=== PATIENT | female | born 1970 | race Two or more races ===

== ENCOUNTER 2025-01-29 23:45 | Emergency (ER) | payer MEDICAID, SELFPAY ==
[2025-01-29 23:56] VITALS: BP 114/66; PULSE 86; RESP 18; TEMP 36.4; O2SAT 98
--- NOTE | 2025-01-29 23:59 | EDNOTE_ITS ---
ED Abdominal Pain RME/HPI General Chief Complaint: Abdominal Pain Stated complaint: LOWER ABDOMINAL PAIN Time seen by provider: 01/30/25 00:09 Arrival date/time: 01/29/25 23:45 RME / HPI RME / HPI narrative: See [facility] for Dr. To's HPI Documentation. Related Data Previous Rx's ?Medication ?Instructions ?Recorded acetaminophen 300 mg-codeine 30 mg 2 tab PO Q8H PRN pa in #20 tabs 01/30/25 tablet cefdinir 300 mg capsule 300 mg PO BID 5 days #10 cap s 01/30/25 ketorolac 10 mg tablet 10 mg PO Q8H PRN pain 5 days #10 01/30/25 tabs ondansetron 4 mg disintegrating 4 mg PO TID PRN nausea and 01/30/25 tablet vomiting 30 days #10 tabs tamsulosin 0.4 mg capsule 0.4 mg PO QDAY #7 caps 01/30 Allergies Allergy/AdvReac Type Severity Reaction Status Date / Time No Known Allergies Allergy Verified 03/12/23 13:32 Review of Systems Review of Systems Systems Reviewed: All systems reviewed, normal except as documented Past Medical History Surgical History SURGICAL: Positive Section ED Exam Narrative Physical exam: See [facility] for Dr. To's Physical Exam Documentation. Course Quality Measures none Orders Category Date Time Status Miscellaneous Nursing Order NOW Care 01/30/25 04:21 Completed Saline [Insert IV] NOW Care 01/29/25 23:59 Completed Straight [In and Out Catheter] X1 Care 01/29/25 23:[address] abdomen pelvis wo con Stat Exams 01/30/25 00:00 Completed Bilirubin,Direct Stat Lab 01/30/25 00:10 Completed CBC Stat Lab 01/30/25 00:10 Completed CMP [Comprehensive Metabolic Panel] Stat Lab 01/30/25 00:10 Completed HCG,Qualitative Serum Stat Lab 01/30/25 00:10 Completed Magnesium Stat Lab 01/30/25 00:10 Completed UA, C/S IF [Urinalysis, C/S if Indicated] Stat Lab 01/30/25 00:09 Completed Urine Culture Stat Lab 01/30/25 00:09 Received Ketorolac Inj [Toradol Inj] Med 01/29/25 23:59 Discontinued 18 mg IVP X1 ONE Morphine* Inj Med 01/29/25 23:59 Discontinued 2 mg IV X1 ONE Ondansetron Inj [Zofran Inj] Med 01/29/25 23:59 Discontinued 4 mg IVP X1 ONE Sodium Chloride 0.9% 1000 ml [Ns] 1,000 ml Med 01/29/25 23:59 Discontinued IV 999 mls/hr Tamsulosin HCl [Flomax] Med 01/30/25 04:20 Discontinued 0.4 mg PO X1 ONE cefTRIAXone/D5w 1gm IV premix [Rocephin/D5w 1gm IV Med 01/30/25 01:11 Discontinued premix] 1 gm in 50 ml IV X1 Vital Signs Vital signs: Vital Signs Temperature 97.6 F 01/29/25 23:56 Pulse Rate 86 01/29/25 23:56 Respiratory Rate 18 01/29/25 23:56 Blood Pressure 114/66 01/29/25 23:56 Pulse Oximetry (%) 98 01/29/25 23:56 Oxygen Delivery Method Room Air 01/29/25 23:56 Abdominal Pain MDM MDM Narrative MDM Narrative:: This section includes all my notes and documentations, including HPI, PE, and ED course. Issa To MD HPI: 54 y/o female presents with right flank pain radiating down to the right groin x 2 days. No other complaints. ROS: All negative except as documented in HPI. Physical Exam: General: Alert and oriented. In severe pain. Eyes: Conjunctivae and lids clear. ENT: No nasal congestion. Neck: Supple. Heart: RRR. Lungs: No respiratory distress. Good air movement. No rhonchi, wheezing, rales. Abdomen: Soft and nontender. Normal bowel sounds. No distension. No rebound or guarding. Back: No CVA tenderness. Skin: Warm and dry. Neuro: Alert and oriented X 3. I reviewed all diagnostic test results: My review of the Abdomen/Pelvis CT report is: 6 mm obstructing calculus in the right ureterovesical junction causing moderate right hydroureteronephrosis. Blood tests unremarkable. UA showed negative nitrite, positive leukocyte esterase, 24 RBC, 17 WBC, 4 squamous epithelial cells, and no bacteria. At this point, diagnoses include: Right Kidney Stone Possible UTI Treatment here included: IVF Toradol 18 mg IV Morphine 2 mg IV Zofran 4 mg IV Rocephin 1 G IV Flomax 0.4 mg PO Urine strainer dispensed. She felt much better. Recommended a trial of outpatient treatment. Based on my best medical judgment, made decision no further evaluation or treatment indicated at this time. Patient understands and agrees to the discharge instructions customized and printed, see below. Discharge Instructions from Dr. To: --Your symptoms are due to a 6 mm right kidney stone.? It is outside the kid jerome.? It is trying to pass into your bladder.? --Increase oral fluid to flush your kidneys.? Maintain clear urine. if it's dark or yellow then increase oral fluid.? If you don't do this, you won't pass it.? --Take Flomax to help decrease spasms to increase the chance of passing it.? --Take Zofran as needed for nausea or vomiting. --Take Ketorolac/Toradol for pain control.? And Tylenol with Codeine.? If you are in severe pain, you won't pass it.?? --Strain your urine so you can catch the stone when you pass it.? --See a private doctor on 06/10/2024 for recheck. Take the stone with you for analysis because certain stones can be prevented.? If you didn't pass it, ask for referral to see urologist.? Who will take the stone out for you. --Seek immediate medical care with fever over 100.4, persistent vomiting despite Zofran, intolerable pain, or with any concerns.?? Issa To MD Patient data External records reviewed:: [facility] previous records (Reviewed prior ED records from 03/12/23. Patient was seen for Arm pain, left. ) Clinical information provided by:: patient Social determinants that could affect healthcare access:: none Patient has the following chronic illnesses:: None reported How is presenting disease/condition affected by chronic disease/condition?: no chronic disease Evaluation data The following diagnostics were reviewed and interpreted by me:: lab results and radiology exam(s) Lab and/or radiology exams considered but not ordered:: None Interpretation Summary: I reviewed all diagnostic test results: My review of the Abdomen/Pelvis CT report is: 6 mm obstructing calculus in the right ureterovesical junction causing moderate right hydroureteronephrosis. Blood tests unremarkable. UA showed negative nitrite, positive leukocyte esterase, 24 RBC, 17 WBC, 4 squamous epithelial cells, and no bacteria. Medications / Prescriptions Medications or Prescriptions considered but not ordered:: None Medication administrations:: Medication Administration History Discontinued Medications Sodium Chloride (Ns) 1,000 mls @ 999 mls/hr IV .Q1H1M ONE Stop: 01/30/25 00:59 Last Infusion: 01/30/25 01:40 Dose: Infused Documented By: Admin: 01/30/25 00:34 Dose: 999 mls/hr Documented By: EE Ceftriaxone Sodium/Dextrose (Rocephin/D5w 1gm Iv Premix) 1 gm in 50 mls @ 100 mls/hr IV X1 ONE Stop: 01/30/25 01:40 Last Infusion: 01/30/25 04:28 Dose: Infused Documented By: Admin: 01/30/25 01:40 Dose: 100 mls/hr Documented By: ADAM Ketorolac Tromethamine (Ketorolac Inj 30 Mg/Ml Vial) 18 mg IVP X1 ONE Stop: 01/30/25 00:00 Last Admin: 01/30/25 00:35 Dose: 18 mg Documented By: EE Morphine Sulfate (Morphine Sulf Inj 4 Mg/Ml Vial) 2 mg IV X1 ONE Stop: 01/30/25 00:00 Last Admin: 01/30/25 00:35 Dose: 2 mg Documented By: EE Ondansetron HCl (Ondansetron Inj 2 Mg/Ml Inj 2 Ml) 4 mg IVP X1 ONE; Protocol Stop: 01/30/25 00:00 Last Admin: 01/30/25 00:35 Dose: 4 mg Documented By: ADAM Tamsulosin HCl (Tamsulosin Hcl 0.4 Mg Capsule) 0.4 mg PO X1 ONE Stop: 01/30/25 04:21 Last Admin: 01/30/25 04:38 Dose: 0.4 mg Documented By: ADAM Treatment here included: IVF Toradol 18 mg IV Morphine 2 mg IV Zofran 4 mg IV Rocephin 1 G IV Flomax 0.4 mg PO Urine strainer dispensed. Consultations Consultation(s) initiated? (list below): No Diagnosis Differential diagnosis abdominal pain: acute appendicitis, calculus of kidney, constipation, diverticulitis, endometriosis, gastroenteritis, pancreatitis, small bowel obstruction (Inguinal hernia) and other Most likely diagnosis given after review of the tests above:: Right Kidney Stone Possible UTI Admission Indicated Admission indicated?: not indicated Explain why admission is indicated or not indicated:: With significant improvement and no condition needing emergent intervention, there was no indication for admission. Admission Request Was there a request for admission?: No Disposition Plan Disposition Plan: Discharge Discharge Attestation Discharge Attestation: The patient and all family members were given an opportunity to ask questions and understood the discharge instructions. Discharge instructions specifically effects, indications for sooner follow up or return to the emergency department, and the expected course of current diagnosis. Patient condition: Stable Discharge Plan Plan Patient Disposition: HOME (Self Care) Prescriptions/Referrals Prescriptions/Med Rec: New acetaminophen-codeine 300-30 mg tablet 2 tab PO Q8H MDD 6 PRN (Reason: pain) Qty: 20 0RF ketorolac 10 mg tablet 10 mg PO Q8H PRN (Reason: pain) 5 Days Qty: 10 0RF ondansetron 4 mg tablet,disintegrating 4 mg PO TID PRN (Reason: nausea and vomiting) 30 Days Qty: 10 0RF cefdinir 300 mg capsule 300 mg PO BID 5 Days Qty: 10 0RF tamsulosin 0.4 mg capsule 0.4 mg PO QDAY Qty: 7 0RF Referrals: Paulino Yeung MD [Primary Care Provider, Family Practice] - In 1 week Problem List Clinical Impression: Right kidney stone Patient/Caregiver Discharge Instructions Discharge Activity: activity as tolerated Education Materials: ED Kidney Stone w/ Colic Additional Instructions: Instrucciones de dave del Dr. To: --Laura s?ntomas se deben a un c?lculo renal de 6 mm en el ri??n derecho. Se encuentra fuera del ri??n y est? intentando pasar a la vejiga. --Aumente la ingesta de l?quidos para limpiar los ri?ones. Mantenga la orina pavan. Si est? oscura o amarilla, aumente la ingesta de l?quidos. Si no lo hace, no expulsar? el c?lculo. --[place] Flomax para ayudar a disminuir los espasmos y aumentar la probabilidad de expulsar el c?lculo. --[place] Zofran seg?n sea necesario para las n?useas o los v?mitos. --[place] Ketorolac/Toradol para controlar el dolor, y tambi?n Tylenol con code?na. Si tiene dolor intenso, no podr? expulsar el c?lculo. --Cuele la orina para poder recoger el c?lculo cuando lo expulse. --Consulte con un m?dico particular el 01/31/2025 para matthew revisi?n. Lleve el c?lculo para manzo an?lisis, ya que ciertos tipos de c?lculos se pueden prevenir. Si no lo expulsa, solicite matthew derivaci?n a un ur?logo, quien se encargar? de extraerlo. --Busque atenci?n m?dica inmediata si presenta fiebre superior a 38 ?C (100.4 ?F), v?mitos persistentes a pesar de ammy Zofran, dolor intolerable o cualquier otra inquietud. Lamentablemente, no contamos con servicio de urolog?a en esta adelso de emergencias. Discharge Instructions from Dr. To: --Your symptoms are due to a 6 mm right kidney stone.? It is outside the kidney.? It is trying to pass into your bladder.? --Increase oral fluid to flush your kidneys.? Maintain clear urine. if it's dark or yellow then increase oral fluid.? If you don't do this, you won't pass it.? --Take Flomax to help decrease spasms to increase the chance of passing it.? --Take Zofran as needed for nausea or vomiting. --Take Ketorolac/Toradol for pain control.? And Tylenol with Codeine.? If you are in severe pain, you won't pass it.?? --Strain your urine so you can catch the stone when you pass it.? --See a private doctor on 01/31/2025 for recheck. Take the stone with you for analysis because certain stones can be prevented.? If you didn't pass it, ask for referral to see urologist.? Who will take the stone out for you. --Seek immediate medical care with fever over 100.4, persistent vomiting despite Zofran, intolerable pain, or with any concerns.?? Unfortunately, we don't have Urologist Service in this ER. Print Language: Azerbaijani Stand Alone Forms: Kristen Award Info., Patient Portal Info Letter
--- NOTE | 2025-01-30 | XR_ITS ---
Examination: CT abdomen and pelvis without contrast. Coronal 3-D reconstructions. Sagittal 2-D reconstructions. Date and time of exam: January 30, 2025, 0230 hours INDICATIONS: Right flank pain lower abdominal pain onset today CTDI: vol (mGy): 4.70 DLP: (mGycm): 225 Technique: Axial images of the abdomen have been obtained, 3 mm slice thickness Intravenous contrast material has not been administered. Low dose protocols were performed. One or more of the following dose reduction techniques were used; automated exposure control, adjustment of the mA and/or KV according to patient size, use of iterative reconstruction technique. Findings: 14 mm low-density liver lesion axial image 84 No gallstones No pancreatic or adrenal mass Mild right hydronephrosis, 6 mm right ureterovesical junction calculus Aorta normal size No bowel obstruction No pericecal inflammatory change Retroverted uterus with uterine fundal masses Bladder intact Moderate osteopenia IMPRESSION: Recommend hepatic sonography to assess 14 mm low-density liver lesion Mild right hydronephrosis, 6 mm distal right ureteral vesicle junction calculus Recommend pelvic sonography to assess multiple uterine masses
[2025-01-30 00:18] LABS: Collection Type, Urine Clean Catch
[2025-01-30 00:29] LABS: Bilirubin,Urine Negative (Negative); Blood,Urine 1+ (Negative); Clarity,Urine Clear (Clear/Hazy); Color,Urine Lt-Yellow (Lt Yel-Yel); Glucose, Urine Negative (Negative); Hyaline Casts,Urine < 1 /hpf (0-1); Ketones,Urine Negative (Negative); Leukocyte Esterase,Urine Positive (Negative); Nitrite,Urine Negative (Negative); PH,Urine 7.0 (5.0-7.0); Protein,Urine Negative (Neg - Trace); RBC,Urine 24 /hpf (0-3); Specific Gravity,Urine 1.018 (1.001-1.035); Squamous Epithelial Cell,Urine 4 /hpf (0-5); Urobilinogen,Urine Negative mg/dL (0.0-1.0); WBC,Urine 17 /hpf (0-5)
[2025-01-30] MEDS: SODIUM CHLORIDE 0.9% 1000 ML 1,000 ML 999 ML IV (00:34)
[2025-01-30] MEDS: KETOROLAC INJ 30 MG/ML VIAL 18 MG IVP (00:35)
[2025-01-30] MEDS: ONDANSETRON INJ 2 MG/ML INJ 2 ML 4 MG IVP (00:35)
[2025-01-30] MEDS: MORPHINE SULF INJ 4 MG/ML VIAL 2 MG IV (00:35)
[2025-01-30 00:38] LABS: Culture Indicated,Urine Yes
[2025-01-30 00:49] LABS: Basophils # (Auto) 0.0 Thou/mm3 (0.0-0.2); Basophils % (Auto) 0 % (0-2.5); Eosinophils # (Auto) 0.1 Thou/mm3 (0.0-0.5); Eosinophils % (Auto) 1 % (0-10); Hematocrit 35.3 % (36.0-46.0); Hemoglobin 11.7 g/dL (12.0-16.0); Immature Granulocytes Auto 0.02 Thou/mm3 (0.00-0.00); Lymphocytes # (Auto) 2.3 Thou/mm3 (1.0-4.8); Lymphocytes % (Auto) 30 % (10-50); Mean Corpuscular HGB Conc 33.1 g/dl (31.0-37.0); Mean Corpuscular Hemoglobin 28.7 pg (25.0-35.0); Mean Corpuscular Volume 87 fL (80-100); Monocytes # (Auto) 0.5 Thou/mm3 (0.0-0.8); Monocytes % (Auto) 6 % (0-12); Neutrophils # (Auto) 4.8 Thou/mm3 (1.8-7.7); Neutrophils % (Auto) 62 % (37-80); Nucleated Red Blood Cell # 0.00 Thou/mm3 (0.00-0.00); Nucleated Red Blood Cell % 0 /100 WBC (0); Platelet Count 302 Thou/mm3 (140-440); RDW Standard Deviation 37.9 fL (36.4-46.3); Red Blood Count 4.07 Miln/mm3 (4.00-5.20); White Blood Count 7.7 Thou/mm3 (3.6-11.0)
[2025-01-30 01:09] LABS: Alanine Aminotransferase 14 U/L (10-49); Albumin, Serum 4.8 gm/dL (3.5-5.0); Albumin/Globulin Ratio 1.8 (1.2-2.2); Alkaline Phosphatase 73 U/L (46-116); Anion Gap 10 (7-16); Aspartate Amino Transferase 27 U/L (0-34); BUN/Creatinine Ratio 13 Ratio (12-20); Bilirubin,Direct < 0.1 mg/dL (0.0-0.3); Bilirubin,Total 0.3 mg/dL (0.3-1.2); Blood Urea Nitrogen 10 mg/dL (9-23); Calcium 9.6 mg/dL (8.3-10.6); Calcium (Corrected) 9.6 mg/dL (8.5-10.1); Carbon Dioxide 28.4 mMol/L (20.0-31.0); Chloride 104 mMol/L (98-107); Creatinine (Component) 0.8 mg/dL (0.6-1.3); Globulin 2.6 gm/dL (2.3-3.5); Glucose 120 mg/dL (74-106); Magnesium 1.8 mg/dL (1.6-2.6); Osmolality,Calculated 283 (275-295); Potassium 4.0 mMol/L (3.4-5.1); Sodium 142 mMol/L (136-145); Total Protein 7.4 gm/dL (5.7-8.2); eGFR > 60 See Note
[2025-01-30 01:10] LABS: HCG,Qualitative Serum Negative
[2025-01-30] MEDS: cefTRIAXone/D5w 1gm IV premix 1 GM/50 ML BAG IV (01:40)
--- NOTE | 2025-01-30 03:55 | PRELIM_ITS ---
CT scan of the abdomen and pelvis without intravenous contrast (axial sections with sagittal and coronal reformats) January 30, 2025 0230 hours Clinical History: Right flank pain Comparison: No prior study is available for comparison. Findings: The lung bases are clear. There is a 6 mm obstructing calculus in the right ureterovesical junction (axial images 168/222) causing moderate hydroureteronephrosis and periureteric/perinephric fat stranding. There is focal fatty infiltration versus ill-defined hypodense lesion in the right lobe of liver measuring 1.2 cm, which may represent hemangioma. The gallbladder, pancreas, splee, left kidney and adrenals are unremarkable on this noncontrast study. No evidence of bowel obstruction. The appendix is within normal limits. There is no mesenteric or retroperitoneal adenopathy. The urinary bladder is unremarkable. Multiple uterine fibroids noted. There is no free fluid or free air. The bones are osteopenic. Degenerative changes are identified in the spine. Impression: 6 mm obstructing calculus in the right ureterovesical junction causing moderate right hydroureteronephrosis. No evidence of renal calculus. Uterine fibroids, this may better evaluated with pelvic ultrasound. Other findings as described above. Report Electronically Signed By: Albino Tijerina 01/30/2025 3:55:27 AM [EST]
[2025-01-30] MEDS: TAMSULOSIN HCL 0.4 MG CAPSULE PO (04:38)
[2025-01-30 04:39] VITALS: BP 125/64; PULSE 78; RESP 19; TEMP 36.6; O2SAT 99
== END 2025-01-30 04:41 | disposition home or self-care (01) ==
PROVIDERS: Emergency Provider Emergency Medicine; PCP Family Medicine
DX: N13.2 Hydronephrosis with renal and ureteral calculous obstruction (principal)
CPT/HCPCS: 36415; 74176; 80053; 81001; 82248; 83735; 84703; 85025; 87077; 87086; 87186; 96361; 96365; 96366; 96375; 99284; J0696; J1885; J2270; J2405; J7030; A9270